=== PATIENT | male | born 1995 | race Caucasian/White ===

== ENCOUNTER 2016-07-27 00:36 | Emergency (ER) | payer OTHER ==
[2016-07-27] MEDS ORDERED: OXYCODONE HCL IR 5 MG TABLET ONE (01:39)
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
[2016-07-27] MEDS ORDERED: HYDROCODONE/ACETAMINOPHEN 5-325 MG 6 TAB/DSPK PO PRN (02:02)
[2016-07-27] MEDS ORDERED: OXYCODONE-ACETAMINOPHEN 5-325 MG TABLET PO ONE (02:02)
[2016-07-27] MEDS ORDERED: ONDANSETRON ODT 4 MG TAB (6 TAB/DSPK) PO PRN (02:06)
[2016-07-27 02:43] VITALS: BP 113/65
== END 2016-07-27 03:38 | disposition home or self-care (01) ==
LOC: ER 00:36
DX: T23.251A Burn of second degree of right palm, initial encounter (principal); T23.231A Burn of second degree of multiple right fingers (nail), not including thumb, initial encounter; T31.0 Burns involving less than 10% of body surface; W39.XXXA Discharge of firework, initial encounter; Z88.5 Allergy status to narcotic agent
CPT/HCPCS: 99284